=== PATIENT | female | born 1945 | race Caucasian/White ===

== ENCOUNTER 2020-07-22 05:15 | Day surgery (SDC) | payer OTHER ==
[2020-07-18 14:42] VITALS: BMI 24.7
[2020-07-22] MEDS ORDERED: LIDOCAINE HCL 2% JELLY 10 ML CARTRIDGE ONE (10:01)
[2020-07-22] MEDS ORDERED: LIDOCAINE HCL 2% JELLY 10 ML CARTRIDGE TP ONE (10:03)
[2020-07-22 11:45] VITALS: BP 151/77; PULSE 53
[2020-07-22 11:59] VITALS: TEMP 98
== END 2020-07-22 11:55 | disposition home or self-care (01) ==
LOC: JASU-ENDO 05:15
PROVIDERS: ATTEND Internal Medicine Gastroenterology
PROC: 06LY4CC Occlusion of Hemorrhoidal Plexus with Extraluminal Device, Percutaneous Endoscopic Approach (ICD-10-PCS; principal; 2020-07-22 10:00)
DX: Z12.11 Encounter for screening for malignant neoplasm of colon (principal); K92.1 Melena; K64.8 Other hemorrhoids; K57.30 Diverticulosis of large intestine without perforation or abscess without bleeding; K64.4 Residual hemorrhoidal skin tags